=== PATIENT | female | born 1935 | race Caucasian/White ===

== ENCOUNTER 2019-09-16 00:58 | Observation (INO) ==
[2019-09-16] MEDS ORDERED: Ipratropium/Albuterol Neb 3 ML IH ONE (01:16)
[2019-09-16 01:46] LABS: Basophils # 0.1 K/mcL (0.0-0.2); Basophils % 0.6 %; Eosinophils # 0.6 K/mcL (0.0-0.6); Eosinophils % 4.8 %; Hematocrit 38.6 % (35.3-44.9); Hemoglobin 12.2 g/dL (11.5-15.4); Immature Granulocytes % 0.3 % (0-4); Lymphocytes % 41.4 %; Mean Corpuscular HGB Conc 31.6 g/dL (31.6-35.5); Mean Corpuscular Volume 95.1 fL (83.0-100.0); Mean Platelet Volume 11.2 fL (9.4-12.4); Monocytes # 0.9 K/mcL (0.0-1.3); Monocytes % 7.1 %; Neutrophils # 5.5 K/mcL (1.6-8.9); Platelet Count 105 K/mcL (140-400); Red Blood Count 4.06 M/mcL (3.82-4.97); Red Cell Distribution Width 14.6 % (11.5-14.5); Segmented Neutrophils % 45.8 %; White Blood Count 12.1 K/mcL (4.3-11.1)
[2019-09-16 01:52] LABS: Prothrombin Time 11.2 Seconds (9.4-12.1)
[2019-09-16 02:03] LABS: Alanine Aminotransferase 10 Units/L (7-52); Albumin 4.2 g/dL (3.5-5.7); Albumin/Globulin Ratio 1.8 (1.1-2.2); Alkaline Phosphatase 122 Units/L (34-104); Aspartate Amino Transferase 14 Units/L (13-39); BUN/Creatinine Ratio 24 (6-26); Bilirubin,Total 0.4 mg/dL (0.3-1.0); Blood Urea Nitrogen 32 mg/dL (8-23); Calcium 8.9 mg/dL (8.6-10.3); Carbon Dioxide 34 mEq/L (23-29); Chloride 100 mEq/L (98-107); Globulin 2.3 g/dL (2.4-3.5); Glucose 107 mg/dL (70-105); Magnesium 2.2 mg/dL (1.6-2.6); Osmolality,Calculated 297 (280-300); Potassium 4.2 mEq/L (3.5-5.1); Sodium 140 mEq/L (136-145); Total Protein 6.5 g/dL (6.4-8.9); Troponin I < 0.03 ng/mL (< 0.04); eGFR For African Americans 45 (> 60); eGFR For Non-African Americans 37 (> 60)
[2019-09-16] MEDS ORDERED: Furosemide 40 MG/4 ML VIAL IVP ONE (02:30)
[2019-09-16] MEDS ORDERED: levoFLOXacin 750 MG/150 ML 750 MG/150 ML BAG IVPB ONE (02:44)
[2019-09-16] MEDS ORDERED: Ergocalciferol (VIT D2) 50,000 UNIT (1.25MG) CAP PO SCH (03:31)
[2019-09-16] MEDS ORDERED: Naloxone 0.4 MG/ML INJ IVP PRN (03:31)
[2019-09-16] MEDS ORDERED: 0.9 % Sodium Chloride 1,000 ML IVC SCH ×2 (03:31→12:30)
[2019-09-16] MEDS ORDERED: Acetaminophen 325 MG TABLET PO PRN (03:31)
[2019-09-16] MEDS: Ipratropium/Albuterol Neb 3 ML IH SCH ×6 (04:46→23:49)
[2019-09-16 07:58] LABS: Basophils # 0.1 K/mcL (0.0-0.2); Basophils % 0.5 %; Eosinophils # 0.6 K/mcL (0.0-0.6); Hematocrit 35.7 % (35.3-44.9); Hemoglobin 11.5 g/dL (11.5-15.4); Immature Granulocytes % 0.3 % (0-4); Lymphocytes # 3.4 K/mcL (0.6-4.6); Lymphocytes % 36.6 %; Mean Corpuscular HGB Conc 32.2 g/dL (31.6-35.5); Mean Corpuscular Hemoglobin 30.3 pg (28.0-33.3); Mean Corpuscular Volume 94.2 fL (83.0-100.0); Mean Platelet Volume 10.5 fL (9.4-12.4); Monocytes # 0.6 K/mcL (0.0-1.3); Monocytes % 6.5 %; Neutrophils # 4.6 K/mcL (1.6-8.9); Red Blood Count 3.79 M/mcL (3.82-4.97); Red Cell Distribution Width 14.5 % (11.5-14.5); Segmented Neutrophils % 50.1 %; White Blood Count 9.3 K/mcL (4.3-11.1)
[2019-09-16 08:00] LABS: Platelet Count 83 K/mcL (140-400)
[2019-09-16] MEDS ORDERED: carvediloL 6.25 MG TABLET PO SCH (08:00)
[2019-09-16 08:11] LABS: Platelet Estimate Decreased (Normal)
[2019-09-16 08:15] LABS: Calcium 8.9 mg/dL (8.6-10.3); Potassium 4.6 mEq/L (3.5-5.1)
[2019-09-16] MEDS: methylPREDNISolone 125 MG/2 ML VIAL IVP SCH (08:54)
[2019-09-16] MEDS ORDERED: OCUVITE ADULT PO SCH (09:00)
[2019-09-16] MEDS ORDERED: Cholecalciferol (D-3) 1,000 UNIT (25MCG) TABLET PO SCH (09:00)
[2019-09-16] MEDS ORDERED: Spironolactone 25 MG TABLET PO SCH ×2 (09:00→09:36)
[2019-09-16] MEDS ORDERED: levoFLOXacin 750 MG/150 ML 750 MG/150 ML BAG IVPB SCH (09:00)
[2019-09-16] MEDS: Aspirin Enteric Coated 81 MG Tablet PO SCH (09:48)
[2019-09-16] MEDS: Ascorbic Acid 500 MG TABLET PO SCH (09:48)
[2019-09-16] MEDS ORDERED: 0.9 % Sodium Chloride 250 ML IVC ONE (11:22)
[2019-09-16] MEDS: polyethylene glycoL 3350 17 GM POWD.PACK PO SCH (12:02)
[2019-09-16] MEDS ORDERED: Benzonatate 100 MG CAPSULE PO PRN (14:39)
[2019-09-16] MEDS ORDERED: Tiotropium 18 MCG inhalation IH ONE (14:48)
[2019-09-16] MEDS: carvediloL 6.25 MG TABLET PO SCH (18:11)
[2019-09-16 20:27] LABS: Adenovirus Not Detected (Not Detect); Coronavirus 229E Not Detected (Not Detect); Coronavirus HKU1 Not Detected (Not Detect); Coronavirus NL63 Not Detected (Not Detect); Coronavirus OC43 Not Detected (Not Detect); Human Metapneumovirus Not Detected (Not Detect); Human Rhinovirus/Enterovirus Not Detected (Not Detect)
[2019-09-16 20:28] LABS: Bordetella Pertussis Not Detected (Not Detect); Chlamydophila pneumoniae Not Detected (Not Detect); Influenza A Subtype 2009 H1 Not Detected (Not Detect); Influenza B Not Detected (Not Detect); Mycoplasma pneumoniae Not Detected (Not Detect); Parainfluenza Virus 1 Not Detected (Not Detect); Parainfluenza Virus 2 Not Detected (Not Detect); Parainfluenza Virus 3 Not Detected (Not Detect); Parainfluenza Virus 4 Not Detected (Not Detect); Respiratory Syncytial Virus Not Detected (Not Detect)
[2019-09-17] MEDS: Ipratropium/Albuterol Neb 3 ML IH SCH ×3 (04:30→11:19)
[2019-09-17 05:16] LABS: Hematocrit 34.8 % (35.3-44.9); Hemoglobin 11.4 g/dL (11.5-15.4); Mean Corpuscular HGB Conc 32.8 g/dL (31.6-35.5); Mean Corpuscular Hemoglobin 30.3 pg (28.0-33.3); Mean Corpuscular Volume 92.6 fL (83.0-100.0); Mean Platelet Volume 10.7 fL (9.4-12.4); Red Blood Count 3.76 M/mcL (3.82-4.97); Red Cell Distribution Width 14.2 % (11.5-14.5); White Blood Count 9.8 K/mcL (4.3-11.1)
[2019-09-17 05:20] LABS: Platelet Count 83 K/mcL (140-400)
[2019-09-17 05:35] LABS: Magnesium 2.1 mg/dL (1.6-2.6); Potassium 4.3 mEq/L (3.5-5.1)
[2019-09-17] MEDS: polyethylene glycoL 3350 17 GM POWD.PACK PO SCH (08:42)
[2019-09-17] MEDS: methylPREDNISolone 125 MG/2 ML VIAL IVP SCH (08:43)
[2019-09-17] MEDS: Aspirin Enteric Coated 81 MG Tablet PO SCH (08:43)
[2019-09-17] MEDS: carvediloL 6.25 MG TABLET PO SCH (08:43)
[2019-09-17] MEDS: Ascorbic Acid 500 MG TABLET PO SCH (08:43)
[2019-09-17] MEDS ORDERED: levoFLOXacin 500 MG/100 ML 500 MG/100 ML BAG IVPB SCH (09:00)
[2019-09-17] MEDS ORDERED: Furosemide 20 MG TABLET PO SCH ×2 (09:00)
[2019-09-17] MEDS ORDERED: OCUVITE ADULT PO SCH (09:00)
[2019-09-17] MEDS ORDERED: Tiotropium 18 MCG inhalation IH SCH (10:00)
[2019-09-17 11:56] VITALS: BP 124/76
[2019-09-18] MEDS ORDERED: predniSONE 20 MG TABLET PO SCH (09:00)
[2019-09-18] MEDS ORDERED: levoFLOXacin 500 MG TABLET PO SCH (09:00)
== END 2019-09-17 13:45 | disposition home health service (06) ==
LOC: INPGRE 00:58 → EMEROOGRE 00:58 → INPGRE 03:17
PROVIDERS: ADMIT Family Medicine; ATTEND Family Medicine